=== PATIENT | male | born 1935 | race Caucasian/White ===

== ENCOUNTER 2024-04-09 13:49 | Outpatient (REF) | payer MEDICARE, SELFPAY ==
--- NOTE | ~2024-04-09 | US_ITS ---
CLINICAL HISTORY: TIA US bilateral carotid duplex Comparison: None Findings: Waveforms demonstrate normal pattern. Peak systolic velocities: Right CCA: 114 cm/s Right ICA: 118 cm/s ICA/CCA ratio: 1 Right ECA: Unremarkable Right vertebral artery flow antegrade. Left CCA: 127 cm/s Left ICA: 80 cm/s ICA/CCA ratio: 0.63 Left ECA: Unremarkable Left vertebral artery flow antegrade. Mild soft plaque noted bilaterally. Bilateral subclavian arteries patent. Impression: No significant velocity altering stenosis This document has been electronically signed by: Aman Vital MD on 04/09/2024 22:25:39
--- OUTSIDE RECORDS SUMMARY | 2024-04-09 14:44 | XMS_ITS | Clinical Summary ---
Author Organization 175 [facility] Address [address] [place] [address] Phone Care Team Providers Care Label Cutter Name Role Phone Nahomi Tay MD Primary Care Provider [phone] Allergies Active Allergy Reactions Criticality Noted Date Comments Amoxicillin 10/12/2011 Medications Medication Sig Dispensed Refills Start Date End Date Status diclofenac (VOLTAREN) 1 % topical gel Apply 1 Dose topically 2 times daily. 11/02/2022 Active acetaminophen (TYLENOL) 500 mg tablet Take 1 Tablet by mouth every 6 hours as needed. Active aspirin 81 mg EC tablet Take 1 Tablet by mouth daily. 05/11/2022 Active fluticasone propionate (FLONASE) 50 mcg/actuation nasal spray SHAKE LIQUID AND USE 2 SPRAYS IN EACH NOSTRIL DAILY 01/19/2022 Active ezetimibe (ZETIA) 10 mg tablet Take 1 Tablet by mouth daily for 180 days. 10/18/2023 04/15/2024 Active sertraline (ZOLOFT) 50 mg tablet TAKE 1 TABLET BY MOUTH DAILY 90 tablet 2 01/16/2024 Active Active Problems Problem Noted Date Diagnosed Date Multiple thyroid nodules 10/17/2022 TIA (transient ischemic attack) 08/22/2022 Abnormal EKG 08/17/2022 Supraventricular bigeminy 08/17/2022 ICAO (internal carotid artery occlusion), right 05/20/2022 Black stools 12/10/2020 Nausea 12/10/2020 Urinary incontinence 04/29/2020 Diastolic dysfunction without heart failure 10/12 Overview (12/13/2023): 10/11/2018 - negative exercise stress test Cystic thyroid nodule 07/24/2017 Overview (12/13/2023): Cystic, 1.8 cm left thyroid lobe nodule seen on carotid ultrasound Anxiety 07/09/2012 Osteoarthritis 01/06/2012 Overview (12/13/2023): Knees Encounters Date Type Department Care Team Description 02/19/2024 2:17 PM EST - 02/19/2024 11:59 PM EST Hospital Encounter [facility] Xray [address] [place] [phone] Chronic left shoulder pain Discharge Disposition: Home or Self Care 02/19/2024 1:00 PM EST Office Visit Internal Medicine - [place] 175 [facility] [address] [place] [phone] Olman Sosa NP Hyperlipidemia, unspecified hyperlipidemia type (Primary Dx); Vitamin D deficiency, unspecified; Mild intermittent asthma, unspecified whether complicated; Chronic left shoulder pain 01/22/2024 9:30 AM EST Office Visit Pulmonolgy - [place] [address] [phone] Osiris Pagan MD Dyspnea, unspecified type (Primary Dx); Restrictive lung disease from Last 3 Months Immunizations Name Administration Dates Next Due Influenza trivalent, 0.5mL ( Fluzone High-dose) 65yo and older 12/28/2021 Influenza trivalent, with preservative (Fluzone; Afluria) 6mo and older 12/10/2016,01/06/2016,12/30/2013,2011 Influenza, Unspecified 12/17/2019 Moderna SARS-CoV-2 COVID-19, mRNA, LNP-S, preservative free 04/23/2020,03/30/2019 Td Tetanus diptheria (Tdvax) 7yo and older 01/06/2012 Surgical History Surgery Date Site/Laterality Comments PROSTATE SURGERY 2009 PROCEDURE: HISTORICAL PROSTATE SURGERY HERNIA REPAIR PROCEDURE: HISTORICAL HERNIA REPAIR/ING; COMMENT: x3 TONSILLECTOMY PROCEDURE: HISTORICAL TONSILLECTOMY VASECTOMY PROCEDURE: HISTORICAL VASECTOMY COLONOSCOPY PROCEDURE: HISTORICAL COLONOSCOPY; COMMENT: had 2; polyps at first exam, no polyps at second exam. Medical History Medical History Date Comments Osteoarthritis 01/06/2012 DX:Osteoarthriti s History of actinic keratoses DX: History of actinic keratoses Family History Medical History Relation Name Comments Asthma Son Coronary artery disease Neg Hx Diabetes Neg Hx Hypertension Neg Hx Other cancer Neg Hx Relation Name Status Comments Father Mother Son Social History Tobacco Use Types Packs/Day Years Used Date Smoking Tobacco: Never Smokeless Tobacco: Never Alcohol Use Standard Drinks/Week Comments No 0 (1 standard drink = 0.6 oz pur e alcohol) Sex and Gender Information Value Date Recorded Sex Assigned at Not on file Gender Identity Not on file Sexual Orientation Not on file Job Start Date Occupation Industry Not on file Not on file Not on file Obstetrics History Last Filed Vital Signs Vital Sign Reading Time Taken Comments Blood Pressure 134/82 02/19/2024 1:17 PM EST Pulse 81 02/19/2024 1:17 PM EST Temperature 37.1 ??C (98.7 ??F) 02/19/2024 1:17 PM ES T Respiratory Rate 16 01/22/2024 9:51 AM EST Oxygen Saturation 98% 02/19/2024 1:17 PM EST Inhaled Oxygen Concentration - - Weight 76.7 kg (169 lb) 02/19/2024 1:17 PM EST Height 175.3 cm (5' 9 ) 01/22/2024 9:51 AM EST Body Mass Index 24.96 01/22/2024 9:51 AM EST Plan of Treatment Upcoming Encounters Date Type Department Care Team (Late st Contact Info) Description 04/25/2024 2:00 PM EST Consult Orthopedics - [place] [address] [place] [phone] Tho Villareal PA [address] [place] [address] 05/29/2024 2:15 PM EDT Office Visit Internal Medicine - [place] 175 [facility] [address] [place] [phone] Olman Sosa NP 175 [facility] [address] [place] [address] 08/16/2024 9:30 AM EDT Appointment [facility] Ultrasound [address] [place] [phone] 08/28/2024 1:00 PM EDT Office Visit Vascular Surgery - [place] [address] [place] [address] Nisreen Hatfield MD [address] [place] [address] 01/22/2025 1:15 PM EST Office Visit Pulmonolgy - [place] [address] [place] [address] Osiris Pagan MD 175 [facility] [address] [place] [address] Health Maintenance Due Date Last Done Comments Zoster Vaccines (1 of 2) 07[birth year]24/1954 Pneumococcal Vaccine: 65+ Years (2 of 2 - PCV) 07/25/2006 07/25/2005 RSV Immunization Patients 60+ Years Old (1 - 1-dose 75+ series) 07/24/2011 DTaP,Tdap,and Td Vaccines (3 - Td or Tdap) 01/05/2022 01/06/2012, 10/13/2004 Depression Screening 02/19/2022 Falls Risk Assessment 02/19/2022 Medicare Annual Wellness Visit 02/19/2022 Social Influencers of Health Screening 02/19/2022 COVID-19 Vaccine ( season) 2023 02/12/2021, 04/23/2020, 03/30/2019 Influenza Vaccine (#1) 2023 , 12/28/2021, 01/12/2021, Additional history exists Cholesterol Screening (Lipid Panel) 02/18/2029 02/19/2024, 11/02/2022 HIB Vaccines Aged Out No longer eligi ble based on patient's age to complete this topic HPV Vaccines Aged Out No longer eligi ble based on patient's age to complete this topic Hepatitis A Vaccines Aged Out No long er eligible based on patient's age to complete this topic Hepatitis B Vaccines Aged Out No long er eligible based on patient's age to complete this topic IPV Vaccines Aged Out No longer eligi ble based on patient's age to complete this topic MMR Vaccines Aged Out No longer eligi ble based on patient's age to complete this topic Meningococcal ACWY Vaccine Aged Out N o longer eligible based on patient's age to complete this topic RSV Immunization Patients Under 20 months Aged Out No longer eligible based on patient's age to complete this topic Varicella Vaccines Aged Out No longer eligible based on patient's age to complete this topic Procedures Procedure Name Priority Date/Time Associated Diagnosis Comments XR SHOULDER 2+ VIEWS LEFT Routine 02/19/2024 2:31 PM EST Chronic left shoulder pain VITAMIN D 25 HYDROXY Routine 02/19/2024 1:46 PM EST Hyperlipidemia, unspecified hyperlipidemia type Vitamin D deficiency, unspecified VITAMIN B12 Routine 02/19/2024 1:46 PM EST Hyperlipidemia, unspecified hyperlipidemia type LIPID PANEL WITH REFLEX TO DIRECT LDL Routine 02/19/2024 1:46 PM EST Hyperlipidemia, unspecified hyperlipidemia type MAGNESIUM Routine 02/19/2024 1:46 PM EST Hyperlipidemia, unspecified hyperlipidemia type COMPREHENSIVE METABOLIC PANEL Routine 02/19/2024 1:46 PM EST Hyperlipidemia, unspecified hyperlipidemia type COMPLETE BLOOD COUNT Routine 02/19/2024 1:46 PM EST Hyperlipidemia, unspecified hyperlipidemia type EXTERNAL XRAY REPORT 02/19/2024 from Last 3 Months Results * XR Shoulder 2+ Views Left (02/19/2024 2:31 PM EST) Anatomical Region Laterality Modality Upper Extremities, Shoulder Left Radi ographic Imaging 02/20/2024 3:34 PM EST Impressions 02/20/2024 3:38 PM EST Mild degenerative changes with periapical spurring AC joint. -------- FINAL REPORT -------- Dictated By: Castro Woody Dictated Date: 02/20/2024 15:34 ET Assigned Physician: Castro Woody Reviewed and Electronically Signed By: Castro Woody Signed Date: 02/20/2024 15:38 ET Workstation ID: [id number] Transcribed By: Self Edit Transcribed Date: 02/20/2024 15:34 ET Narrative 02/20/2024 3:38 PM EST EXAMINATION: Left shoulder 4 views. CLINICAL INDICATION: None. COMPARISON: None. FINDINGS: There is loss of AC joint ??space with periarticular spurring. No visible acute fracture, dislocation or subluxation seen. There is soft tissue calcification superior to the humeral head likely calcific bursitis. No aggressive lytic or sclerotic process seen. Procedure Note Castro Woody MD - 02/20/2024 EXAMINATION: Left shoulder 4 views. CLINICAL INDICATION: None. COMPARISON: None. FINDINGS: There is loss of AC joint space with periarticular spurring. Novisible acute fracture, dislocation or subluxation seen. There is softtissue calcification superior to the humeral head likely calcificbursitis. No aggressive lytic or sclerotic process seen. IMPRESSION: Mild degenerative changes with periapical spurring AC joint. -------- FINAL REPORT -------- Dictated By: Castro Woody Dictated Date: 02/20/2024 15:34 ET Assigned Physician: Castro Woody Reviewed and Electronically Signed By: Castro Woody Signed Date: 02/20/2024 15:38 ET Workstation ID: [id number] Transcribed By: Self Edit Transcribed Date: 02/20/2024 15:34 ET Olamn Sosa WORK FROM HOME IMG XR PROCEDURES * Lipid panel with reflex to direct LDL (02/19/2024 1:46 PM EST) Cholesterol 130 0 - 200 mg/dL LAB CHEMISTRY METHOD 02/19/2024 7:30 PM EST [facility] Triglycerides 85 0 - 150 mg/dL LAB CHEMISTRY METHOD 02/19/2024 7:30 PM EST [facility] HDL 51 >=40 mg/dL LAB CHEMISTRY METHOD 02/19/2024 7:30 PM EST [facility] LDL Calculated 62 0 - 100 mg/dL LAB CHEMISTRY METHOD 02/19/2024 7:30 PM EST [facility] VLDL Cholesterol Rony 17 mg/dL LAB CHEMISTRY METHOD 02/19/2024 7:30 PM EST [facility] Non HDL Chol. (LDL+VLDL) 79 <145 mg/dL LAB CHEMISTRY METHOD 02/19/2024 7:30 PM EST [facility] Chol/HDL Ratio 2.5 0.0 - 4.4 LAB CHEMISTRY METHOD 02/19/2024 7:30 PM [facility] Blood Venous blood specimen / Unknown Venipuncture / Unknown 02/19/2024 1:46 PM EST 02/19/2024 1:46 PM EST Olman Sosa NP LAB BLOOD ORDERABLES Performing Organization Address City/[facility]/ZIP Co de Phone Number [facility] [address] [place] [address], [place] [phone] * Vitamin D 25 hydroxy (02/19/2024 1:46 PM EST) [facility] Vit D, 25-Hydroxy 37.9 30.0 - 80.0 ng/mL LAB CHEMISTRY METHOD 02/19/2024 7:14 PM EST [facility] Blood Venous blood specimen / Unknown Venipuncture / Unknown 02/19/2024 1:46 PM EST 02/19/2024 1:46 PM EST Olman Sosa NP LAB BLOOD ORDERABLES [facility] [address] [place] [address], [place] [phone] * Complete blood count (02/19/2024 1:46 PM EST) [facility] WBC 7.9 4.8 - 10.8 K/mcL LAB HEMETOLOGY METHOD 02/19/2024 6:26 PM [facility] RBC 4.50 4.50 - 5.50 M/mcL LAB HEMETOLOGY METHOD 02/19/2024 6:26 PM [facility] Hemoglobin 13.9 13.5 - 17.5 g/dL LAB HEMETOLOGY METHOD 02/19/2024 6:26 PM [facility] Hematocrit 42.8 42.0 - 54.0 % LAB HEMETOLOGY METHOD 02/19/2024 6:26 PM [facility] MCV 94.3 79.0 - 98.0 FL LAB HEMETOLOGY METHOD 02/19/2024 6:26 PM [facility] MCH 30.6 27.0 - 32.0 pcg LAB HEMETOLOGY METHOD 02/19/2024 6:26 PM [facility] MCHC 32.5 32.0 - 37.0 g/dL LAB HEMETOLOGY METHOD 02/19/2024 6:26 PM [facility] RDW 13.5 11.0 - 15.0 % LAB HEMETOLOGY METHOD 02/19/2024 6:26 PM [facility] Platelets 259 130 - 400 K/mcL LAB HEMETOLOGY METHOD 02/19/2024 6:26 PM [facility] MPV 10.0 7.0 - 11.0 FL LAB HEMETOLOGY METHOD 02/19/2024 6:26 PM [facility] NRBC 0.0 <1.0 % LAB HEMETOLOGY METHOD 02/19/2024 6:26 PM [facility] NRBC Absolute 0.00 <0.10 K/mcL LAB HEMETOLOGY METHOD 02/19/2024 6:26 PM [facility] Blood Venous blood specimen / Unknown Venipuncture / Unknown 02/19/2024 1:46 PM EST 02/19/2024 1:46 PM EST Olman Sosa WORK FROM HOME LAB BLOOD ORDERABLES Performing Organization Address City/[facility]/ZIP Co de Phone Number [facility] [address] [place] [address], [place] [phone] * Magnesium (02/19/2024 1:46 PM EST) Pathologist [facility] Magnesium 2.0 1.9 - 2.6 mg/dL LAB CHEMISTRY METHOD 02/19/2024 7:06 PM EST [facility] Blood Venous blood specimen / Unknown Venipuncture / Unknown 02/19/2024 1:46 PM EST 02/19/2024 1:46 PM EST Olman Sosa WORK FROM HOME LAB BLOOD ORDERABLES Performing Organization Address [facility] Co de Phone Number [facility] [address] [place] [address], [place] [phone] * Vitamin B12 (02/19/2024 1:46 PM EST) Pathologist [facility] Vitamin B-12 428 250 - 900 pcg/mL LAB CHEMISTRY METHOD 02/19/2024 7:30 PM EST [facility] Blood Venous blood specimen / Unknown Venipuncture / Unknown 02/19/2024 1:46 PM EST 02/19/2024 1:46 PM EST Olman Sosa WORK FROM HOME LAB BLOOD ORDERABLES Performing Organization Address City/[facility]/ZIP Co de Phone Number [facility] [address] [place] [address], [place] [phone] * (ABNORMAL) Comprehensive metabolic panel (02/19/2024 1:46 PM EST) Pathologist [facility] Sodium 139 133 - 145 mmol/L LAB CHEMISTRY METHOD 02/19/2024 7:30 PM EST [facility] Potassium 4.2 3.5 - 5.5 mmol/L LAB CHEMISTRY METHOD 02/19/2024 7:30 PM [facility] Chloride 104 96 - 110 mmol/L LAB CHEMISTRY METHOD 02/19/2024 7:30 PM [facility] CO2 27 21 - 32 mmol/L LAB CHEMISTRY METHOD 02/19/2024 7:30 PM [facility] Anion Gap 8 3 - 11 LAB CHEMISTRY METHOD 02/19/2024 7:30 PM [facility] Glucose 78 70 - 100 mg/dL LAB CHEMISTRY METHOD 02/19/2024 7:30 PM [facility] BUN 25 5 - 25 mg/dL LAB CHEMISTRY METHOD 02/19/2024 7:30 PM [facility] Creatinine 1.34(H) 0.70 - 1.30 mg/dL LAB CHEMISTRY METHOD 02/19/2024 7:30 PM [facility] eGFR 51(L) >=60 mL/min/1. 73m2 LAB CHEMISTRY METHOD 02/19/2024 7:30 PM [facility] Comment:Calculation based on the??Chronic Kidney Disease Epidemiology Collaboration (CKD-EPI) equation refit??without adjustment for race. BUN/Creatinine Ratio 18.7 LAB CHEMISTRY METHOD 02/19/2024 7:30 PM [facility] Calcium 9.8 8.5 - 10.5 mg/dL LAB CHEMISTRY METHOD 02/19/2024 7:30 PM [facility] AST (SGOT) 19 10 - 42 unit/L LAB CHEMISTRY METHOD 02/19/2024 7:30 PM [facility] ALT (SGPT) 30 10 - 60 unit/L LAB CHEMISTRY METHOD 02/19/2024 7:30 PM [facility] Alkaline Phosphatase 99 42 - 121 unit/L LAB CHEMISTRY METHOD 02/19/2024 7:30 PM [facility] Total Protein 7.1 6.0 - 8.0 g/dL LAB CHEMISTRY METHOD 02/19/2024 7:30 PM EST [facility] Albumin 4.0 3.2 - 5.0 g/dL LAB CHEMISTRY METHOD 02/19/2024 7:30 PM EST [facility] Total Bilirubin 0.8 0.0 - 1.4 mg/dL LAB CHEMISTRY METHOD 02/19/2024 7:30 PM EST [facility] Blood Venous blood specimen / Unknown Venipuncture / Unknown 02/19/2024 1:46 PM EST 02/19/2024 1:46 PM EST Olman Sosa WORK FROM HOME LAB BLOOD ORDERABLES [facility] [address] [place] [address], * External Xray Report (02/19/2024) Anatomical Region Laterality Modality Radiographic Christine ging Provider [facility]G XR PROCEDURE S from Last 3 Months Care Teams Label Cutter Relationship Specialty Start Date End Date Nahomi Tay MD 175 [facility] [address] [place] [address] PCP - General Internal Medicine 12/03/20
== END 2024-04-09 13:50 | disposition home or self-care (01) ==
LOC: HO.HMGCX 13:49
PROVIDERS: PCP Internal Medicine; Visit Provider Registered Nurse
DX: G45.9 Transient cerebral ischemic attack, unspecified (principal)
CPT/HCPCS: 93880

== ENCOUNTER → 2024-04-09 13:54 | Outpatient (BNV) | payer MEDICARE, SELFPAY | PROVIDERS: PCP Internal Medicine; Visit Provider Radiology Diagnostic Radiology | DX: G45.9 Transient cerebral ischemic attack, unspecified (principal) | CPT/HCPCS: 93880 ==